=== PATIENT | male | born 1955 | race Caucasian/White ===

== ENCOUNTER 2021-10-21 10:26 | Emergency (ER) | payer OTHER ==
--- OUTSIDE RECORDS SUMMARY | 2021-10-21 10:48 | XMS REPORT | Continuity of Care Document ---
:1955 Author Organization [facility] t Address [address] [place] [id number] Care Team Providers Name Role Phone Unavailable Unavailable Unavailable Problems This patient has no known problems. Allergies, Adverse Reactions, Alerts This patient has no known allergies or adverse reactions. Medications This patient has no known medications. Procedures This patient has no known procedures. Encounters Start End Encounter Admission Attending Care Care Encounter Source Date/Time Date/Time Type Type Clinicians Facility Department ID 2021-10-03 Outpatient [facility] 14:29:54 [facility] Clinics 2021-10-03 Outpatient [facility] [id number] [facility] [address] 14:25:52 [id number] [facility] Clinics 2021-10-03 Outpatient [facility] 14:25:28 [id number] [facility] ent Clinics Results This patient has no known results.
[2021-10-21 11:06] LABS: Urine Blood Trace-intact (Negative); Urine Glucose Negative (Negative); Urine Protein Negative (Negative); Urine Specific Gravity 1.025 (1.005-1.030); Urine pH 5.5 (5.0-7.0)
--- NOTE | 2021-10-21 11:46 | EDPHYS ---
Physician Documentation [facility] Name: Ilir Mims Age: 65 yrs Sex: Male : 1955 Arrival Date: 10/21/2021 Time: 10:32 Bed 24 Private MD: Jordan Modi ED Physician Maulik Ferrell HPI: 10/21 10:56 This 65 yrs old Male presents to ER via Ambulatory with complaints of Urinary Problem. jmm 10:56 The patient presents with urinary symptoms, retention. Onset: The symptoms/episode jmm began/occurred acutely, today. Modifying factors: The symptoms are alleviated by nothing, the symptoms are aggravated by nothing. Associated signs and symptoms: Pertinent negatives: abdominal pain, fever, nausea, vomiting. The patient has not experienced similar symptoms in the past. Historical: - Allergies: 10:55 No Known Allergies; jl7 - Home Meds: 10:55 Flomax Oral [Active]; levothyroxine oral [Active]; jl7 - PMHx: 10:55 Hypothyroidism; BPH; jl7 - Immunization history:: Client reports receiving the 2nd dose of the Covid vaccine. - Social history:: Smoking status: unknown. ROS: 10:56 Constitutional: Negative for fever, chills, and weight loss, Cardiovascular: Negative jmm for chest pain, palpitations, and edema, Respiratory: Negative for shortness of breath, cough, wheezing, and pleuritic chest pain. 10:56 : Positive for urinary symptoms. 10:56 All other systems are negative. Exam: 10:56 Constitutional: This is a well developed, well nourished patient who is awake, alert, jmm and in no acute distress. Head/Face: atraumatic. Eyes: EOMI, no conjunctival erythema appreciated ENT: Moist Mucus Membranes Neck: Trachea midline, Supple Chest/axilla: Normal chest wall appearance and motion. Cardiovascular: Regular rate and rhythm. No edema appreciated Respiratory: Normal respirations, no respiratory distress appreciated Abdomen/GI: Non distended, soft Back: Normal ROM Skin: General appearance color normal MS/ Extremity: Moves all extremities, no obvious deformities appreciated, no edema noted to the lower extremities Neuro: Awake and alert Psych: Behavior is normal, Mood is normal, Patient is cooperative and pleasant Vital Signs: 10:54 Temp 97.2; Weight 99.79 kg; Height 5 ft. 10 in. (177.80 cm); jl7 11:32 BP 118 / 78; Pulse 94; Resp 18; Temp 97.2; Pulse Ox 95% on R/A; lr4 10:54 Body Mass Index 31.57 (99.79 kg, 177.80 cm) jl7 MDM: 10:56 Patient medically screened. [facility] 11:44 Data reviewed: vital signs, nurses notes. Counseling: I had a detailed discussion with [facility] the patient and/or guardian regarding: the historical points, exam findings, and any diagnostic results supporting the discharge/admit diagnosis, lab results, the need for outpatient follow up, to return to the emergency department if symptoms worsen or persist or if there are any questions or concerns that arise at home. 10/21 11:06 Order name: Urine Dipstick-Ancillary; Complete Time: 11:10 EDMS Administered Medications: No medications were administered Disposition: 19:27 Co-signature as Attending Physician, Maulik Ferrell MD I agree with the assessment and kdr plan of care. Disposition Summary: 10/21/21 11:45 Discharge Ordered Location: Home [facility] Condition: Stable [facility] Diagnosis - Acute Urinary Retention [facility] Followup: [facility] - With: Jordan Modi MD - When: 2 - 3 days - Reason: Recheck today's complaints, Continuance of care, Re-evaluation by your physician Discharge Instructions: - Discharge Summary Sheet [facility] - Acute Urinary Retention, Male [facility] Forms: - Medication Reconciliation Form [facility] - Thank You Letter [facility] - Antibiotic Education [facility] - Prescription Opioid Use [facility] Signatures: Dispatcher [employer] EDMS Maulik Ferrell MD MD kdr Mickail, Joel, PA PA [facility] Bartolo Flowers, RN RN jl7 Ruth Jackson, RN RN lr4
--- NOTE | 2021-10-21 11:46 | ER ---
Nurse's Notes [facility] Name: Ilir Mims Age: 65 yrs Sex: Male : 1955 Arrival Date: 10/21/2021 Time: 10:32 Bed 24 Private MD: Jordan Modi Diagnosis: Acute Urinary Retention Presentation: 10/21 10:54 Chief complaint: Patient states: Unable to urinate since this morning, last void was jl7 last night. Coronavirus screen: At this time, the client does not indicate any symptoms associated with coronavirus-19. Ebola Screen: No symptoms or risks identified at this time. Initial Sepsis Screen: Does the patient meet any 2 criteria? No. Patient's initial sepsis screen is negative. Does the patient have a suspected source of infection? No. Patient's initial sepsis screen is negative. Risk Assessment: Do you want to hurt yourself or someone else? Patient reports no desire to harm self or others. Onset of symptoms was October 21, 2021. 10:54 Method Of Arrival: Ambulatory jl7 10:54 Acuity: ENOC 3 jl7 Triage Assessment: 10:55 General: Appears in no apparent distress. uncomfortable, Behavior is calm, cooperative, jl7 appropriate for age. Pain: Denies pain. Historical: - Allergies: 10:55 No Known Allergies; jl7 - Home Meds: 10:55 Flomax Oral [Active]; levothyroxine oral [Active]; jl7 - PMHx: 10:55 Hypothyroidism; BPH; jl7 - Immunization history:: Client reports receiving the 2nd dose of the Covid vaccine. - Social history:: Smoking status: unknown. Screenin:13 Abuse screen: Denies threats or abuse. Nutritional screening: No deficits noted. lr4 Tuberculosis screening: No symptoms or risk factors identified. Fall Risk None identified. Assessment: 11:06 General: Appears in no apparent distress. uncomfortable, well groomed, Behavior is lr4 calm, cooperative, Reports. Pain: Denies pain. Neuro: No deficits noted. Cardiovascular: No deficits noted. Respiratory: No deficits noted. : Reports inability to void, since last night before bed Denies pain. 11:35 Reassessment: Patient and/or family updated on plan of care and expected duration. Pain lr4 level reassessed. Pt has 900 cc of output per rose. Spoke with Shoshana LEE, he adv leg bag. Vital Signs: 10:54 Temp 97.2; Weight 99.79 kg; Height 5 ft. 10 in. (177.80 cm); jl7 11:32 BP 118 / 78; Pulse 94; Resp 18; Temp 97.2; Pulse Ox 95% on R/A; lr4 10:54 Body Mass Index 31.57 (99.79 kg, 177.80 cm) 7 ED Course: 10:32 Patient arrived in ED. mr 10:32 Jordan Modi MD is Private Physician. mr 10:47 [facility] 10:47 Maulik Ferrell MD is Attending Physician. [facility] 10:55 Triage completed. 7 10:55 Arm band placed on right wrist. [facility] 10:56 Bladder scan completed. 728 mL. jl7 11:10 Rose cath inserted, using sterile technique, 16 Fr., by md, balloon inflated, to lr4 gravity drainage, urine specimen collected. 11:13 Patient has correct armband on for positive identification. Bed in low position. Call lr4 light in reach. Adult w/ patient. Door closed. Noise minimized. Warm blanket given. Verbal reassurance given. 11:13 No provider procedures requiring assistance completed. lr4 11:45 Jordan Modi MD is Referral Physician. [facility] 11:47 Patient did not have IV access during this emergency room visit. Pt d/c'd home, lr4 ambulatory in nad, vss, resp even an unlabored, pt has order to d/c with rose, so 16 fr rose with leg bag still in place upon d/c. Administered Medications: No medications were administered Outcome: 11:15 Condition: good lr4 11:45 Discharge ordered by . [facility] 11:47 Discharged to home lr4 11:47 Discharge instructions given to patient, family. 11:58 Patient left the ED. lr4 Signatures: Mina Anna PA PA jmm Rivera, Mary FlowersBartolo, RN RN jl7 Ruth Jackson RN RN lr4
[2021-10-21 12:16] VITALS: TEMP 97.2
[2021-10-21 12:18] VITALS: BP 118/78; O2SAT 95
== END 2021-10-21 11:58 | disposition home or self-care (01) ==
LOC: ER 10:26
DX: R33.9 Retention of urine, unspecified (principal); E03.9 Hypothyroidism, unspecified
CPT/HCPCS: 51702; 81003; 99284

== ENCOUNTER 2022-01-01 01:32 | Emergency (ER) | payer OTHER ==
--- OUTSIDE RECORDS SUMMARY | 2022-01-01 01:34 | XMS REPORT | Continuity of Care Document ---
:1955 Author Organization [facility] t Address [address] [place] [address] [address] [place] [address] Care Team Providers Name Role Phone MD Roosevelt LOPEZ Attending Clinician Unavailable PREETHI Attending Clinician Unavailable MD Roosevelt LOPEZ Admitting Clinician Unavailable Problems This patient has no known problems. Allergies, Adverse Reactions, Alerts This patient has no known allergies or adverse reactions. Medications This patient has no known medications. Procedures This patient has no known procedures. Encounters Start End Encounter Admission Attending Care Care Encounter Source Date/Time Date/Time Type Type Clinicians Facility Department ID 2021-10-03 Outpatient [facility] 2021-10-03 Out[facility] 14[facility] 2021-10-03 Outpatient [facility] 14:25:[facility] [id number] [facility] 2021-12-31 2021-12-31 [facility] [id number] [place] 00:00:00 00:00:00 [facility] [address] 2021-12-31 2021-12-31 [facility] [id number] [place] 00:00:00 00:00:00 [facility] [address] 2021-12-18 2021-12-18 [facility] [id number] [place] 00:00:00 00:00:00 [address] [address] 2021-11-06 2021-11-06 [facility] [id number] [place] 00:00:00 00:00:00 MARY [facility] Results Test Description Test Time Test Comments Results Result Comments Source SARS-CoV-2 (COVID-19) RNA [Presence] in Respiratory sp ecimen by 2021-12-31 18:53:05 ROMAN with probe detection Test Item Value Reference Range Interpretation Comme nts SARS-CoV-2 (COVID-19) RNA [Presence] in Respiratory specimen by Not detected ROMAN with probe detection (test code = 27734-7) Whether patient is employed in a healthcare setting (test code = Un known 87113-2) Whether the patient has symptoms related to condition of interest U nknown (test code = 40213-5) Whether the patient was hospitalized for condition of interest Unkn own (test code = 59735-4) Whether the patient was admitted to intensive care unit (ICU) for U nknown condition of interest (test code = 11276-7) Whether patient resides in a congregate care setting (test code = U nknown 27049-6) status (test code = 94392-0) Unknown Date and time of symptom onset (test code = 17437-9) Unknown
--- NOTE | 2022-01-01 03:02 | ER ---
Nurse's Notes [facility] Name: Ilir Mims Age: 66 yrs Sex: Male : 1955 Arrival Date: 01/01/2022 Time: 01:35 Bed 13 Private MD: Diagnosis: Mechanical complication of urinary (indwelling) catheter Presentation: 01/01 01:48 Chief complaint: Patient states: I cannot void from my catheter. It stopped flowing jb4 about 3-4 hours ago. 01:48 Coronavirus screen: At this time, the client does not indicate any symptoms associated jb4 with coronavirus-19. Ebola Screen: No symptoms or risks identified at this time. Initial Sepsis Screen: Does the patient meet any 2 criteria? No. Patient's initial sepsis screen is negative. Does the patient have a suspected source of infection? Yes: Catheter related infection (Sheppard/dialysis/PICC/central line). Risk Assessment: Do you want to hurt yourself or someone else? Patient reports no desire to harm self or others. Onset of symptoms was January 01, 2022. Transition of care: patient was not received from another setting of care. 01:48 Method Of Arrival: Ambulatory jb4 01:48 Acuity: ENOC 4 jb4 Historical: - Allergies: 02:16 No Known Allergies; jb4 - Home Meds: 02:16 Flomax Oral [Active]; levothyroxine oral [Active]; jb4 - PMHx: 02:16 BPH; Hypothyroidism; jb4 - PSHx: 02:16 None; jb4 - Immunization history:: Adult Immunizations up to date. - Social history:: Smoking status: Patient denies any tobacco usage or history of. Screenin:10 Abuse screen: Denies threats or abuse. Denies injuries from another. Nutritional sm5 screening: No deficits noted. Tuberculosis screening: No symptoms or risk factors identified. Fall Risk None identified. Assessment: 02:45 General: Appears in no apparent distress. Behavior is cooperative. Pain: Complains of sm5 pain in pelvis. Neuro: No deficits noted. Level of Consciousness is awake, alert, obeys commands, Oriented to person, place, time, situation. Cardiovascular: No deficits noted. Capillary refill < 3 seconds Patient's skin is warm and dry. Respiratory: No deficits noted. Airway is patent Trachea midline Respiratory effort is even, unlabored. GI: Abdomen is obese. : Sheppard in place Reports blocked catheter. Vital Signs: 01:48 BP 106 / 69; Pulse 68; Resp 18; Temp 98.3(TE); Pulse Ox 98% on R/A; Weight 104.33 kg jb4 (R); Height 5 ft. 3 in. (160.02 cm) (R); Pain 0/10; 01:48 Body Mass Index 40.74 (104.33 kg, 160.02 cm) jb4 ED Course: 01:35 Patient arrived in ED. bp1 01:47 Enrike Chapman PA is PHCP. jr8 01:47 Adrian Yanes MD is Attending Physician. jr8 02:12 Serenity Weems, RN is Primary Nurse. sm5 02:16 Triage completed. jb4 02:16 Arm band placed on. jb4 02:50 Sheppard cath removed intact, balloon deflated. sm5 02:55 Sheppard cath inserted, using sterile technique, 16 Fr., by ar, balloon inflated, to sm5 gravity drainage. 03:11 Patient has correct armband on for positive identification. Placed in gown. Bed in low sm5 position. Call light in reach. Side rails up X2. 03:11 No provider procedures requiring assistance completed. Patient did not have IV access sm5 during this emergency room visit. Administered Medications: No medications were administered Outcome: 03:02 Discharge ordered by . jr8 03:11 Discharged to home ambulatory, with significant other. sm5 03:11 Condition: stable 03:11 Discharge instructions given to patient, significant other, Instructed on discharge instructions, follow up and referral plans. Demonstrated understanding of instructions, follow-up care. 03:12 Patient left the ED. sm5 Signatures: Enrike Chapman PA PA jr8 Raad Wyatt, RN RN jb4 Araseli Almanza bp1 Serenity Weems, BROOKE RN sm5
--- NOTE | 2022-01-01 03:03 | EDPHYS ---
Physician Documentation [facility] Name: Ilir Mims Age: 66 yrs Sex: Male : 1955 Arrival Date: 01/01/2022 Time: 01:35 Bed 13 Private MD: ED Physician Adrian Yanes HPI: 01/01 02:08 This 66 yrs old Male presents to ER via Unassigned with complaints of Problem With jr8 Urinary Catheter. 02:08 The patient presents with a Rose catheter problem, is not draining. Onset: The jr8 symptoms/episode began/occurred acutely, 3 hour(s) ago. Modifying factors: The symptoms are alleviated by nothing. Associated signs and symptoms: The patient has no apparent associated signs or symptoms. Severity of symptoms: At their worst the symptoms were mild, in the emergency department the symptoms are unchanged. The patient has not experienced similar symptoms in the past. The patient has not recently seen a physician. Tried getting it to drain at home but is without irrigation system or other means to check why it is not flowing . Historical: - Allergies: 02:16 No Known Allergies; jb4 - Home Meds: 02:16 Flomax Oral [Active]; levothyroxine oral [Active]; jb4 - PMHx: 02:16 BPH; Hypothyroidism; jb4 - PSHx: 02:16 None; jb4 - Immunization history:: Adult Immunizations up to date. - Social history:: Smoking status: Patient denies any tobacco usage or history of. ROS: 02:08 Constitutional: Negative for fever, chills, and weight loss, Cardiovascular: Negative jr8 for chest pain, palpitations, and edema, Respiratory: Negative for shortness of breath, cough, wheezing, and pleuritic chest pain, Abdomen/GI: Negative for abdominal pain, nausea, vomiting, diarrhea, and constipation, Back: Negative for injury and pain, : Negative for injury, bleeding, discharge, and swelling, or urinary symptoms MS/Extremity: Negative for injury and deformity, Skin: Negative for injury, rash, and discoloration, Neuro: Negative for headache, weakness, numbness, tingling, and seizure. Exam: 02:08 Constitutional: This is a well developed, well nourished patient who is awake, alert, jr8 and in no acute distress. Cardiovascular: Regular rate and rhythm with a normal S1 and S2. No gallops, murmurs, or rubs. Normal PMI, no JVD. No pulse deficits. Respiratory: Lungs have equal breath sounds bilaterally, clear to auscultation and percussion. No rales, rhonchi or wheezes noted. No increased work of breathing, no retractions or nasal flaring. Abdomen/GI: Soft, non-tender, with normal bowel sounds. No distension or tympany. No guarding or rebound. No evidence of tenderness throughout. Skin: Warm, dry with normal turgor. Normal color with no rashes, no lesions, and no evidence of cellulitis. MS/ Extremity: Pulses equal, no cyanosis. Neurovascular intact. Full, normal range of motion. Neuro: Awake and alert, GCS 15, oriented to person, place, time, and situation. Cranial nerves II-XII grossly intact. Motor strength 5/5 in all extremities. Sensory grossly intact. Vital Signs: 01:48 BP 106 / 69; Pulse 68; Resp 18; Temp 98.3(TE); Pulse Ox 98% on R/A; Weight 104.33 kg jb4 (R); Height 5 ft. 3 in. (160.02 cm) (R); Pain 0/10; 01:48 Body Mass Index 40.74 (104.33 kg, 160.02 cm) jb4 MDM: 01:48 Patient medically screened. [facility] 03:00 Data reviewed: vital signs, nurses notes, and as a result, I will discharge patient. jr8 Data interpreted: Pulse oximetry: on room air is 98 %. Interpretation: normal. Counseling: I had a detailed discussion with the patient and/or guardian regarding: the historical points, exam findings, and any diagnostic results supporting the discharge/admit diagnosis, the need for outpatient follow up, a urologist, to return to the emergency department if symptoms worsen or persist or if there are any questions or concerns that arise at home. ED course: Patient feeling better post insertion of rose catheter after replacing from old one. Good stream in rose. Knows to come back if it stops up again . 01/01 02:43 Order name: Rose; Complete Time: 03:08 fani 01/01 02:43 Order name: Leg Bag; Complete Time: 03:08 fani Administered Medications: No medications were administered Disposition Summary: 01/01/22 03:02 Discharge Ordered Location: Home jr8 Problem: new jr8 Symptoms: have improved jr8 Condition: Stable jr8 Diagnosis - Mechanical complication of urinary (indwelling) catheter jr8 Followup: jr8 - With: Private Physician - When: 2 - 3 days - Reason: Recheck today's complaints, Continuance of care, Re-evaluation by your physician Discharge Instructions: - Discharge Summary Sheet jr8 - Indwelling Urinary Catheter Insertion jr8 Forms: - Medication Reconciliation Form jr8 - Thank You Letter jr8 - Antibiotic Education jr8 - Prescription Opioid Use jr8 Addendum: 01/03/2022 07:19 Co-signature as Attending Physician, Adrian Yanes MD I agree with the assessment and c estrada plan of care. Signatures: Adrian Yanes MD MD cha Roszak, Josh, PA PA jr8 Raad Wyatt, RN RN jb4
[2022-01-01 05:36] VITALS: BP 106/69; TEMP 98.3; O2SAT 98
== END 2022-01-01 03:12 | disposition home or self-care (01) ==
LOC: ER 01:32
PROC: 0T9B70Z Drainage of Bladder with Drainage Device, Via Natural or Artificial Opening (ICD-10-PCS; principal; 2022-01-01)
DX: T83.098A Other mechanical complication of other urinary catheter, initial encounter (principal); E03.9 Hypothyroidism, unspecified; N40.0 Benign prostatic hyperplasia without lower urinary tract symptoms
CPT/HCPCS: 51702; 99284